=== PATIENT | female | born 1960 | race Caucasian/White ===

== ENCOUNTER 2021-04-20 11:47 | Outpatient (CLI) | payer OTHER, SELFPAY ==
--- NOTE | 2021-04-20 12:34 | ECG_ITS ---
Measurements Intervals [employer] Rate: 55 P: 11 HI: 129 QRS: -3 QRSD: 101 T: 2 QT: 432 QTc: 416 Interpretive Statements SINUS BRADYCARDIA DELAYED PRECORDIAL R/S TRANSITION VOLTAGE CRITERIA FOR LVH MINIMAL Q WAVES- HIGH LATERAL LEADS BORDERLINE T WAVE ABNORMALITY- INFERIOR LEADS BASELINE ARTIFACT- I, II, AVR, AVF BORDERLINE ECG Electronically Signed On 04-20-2021 12:59:06 [employer] WORK[employer] by Pedro Yuen D.O.
[2021-04-20 13:06] LABS: Basophils Percent Auto 0.4 % (0.2-1.2); Eosinophils Absolute Auto 0.1 K/mm3 (0-0.3); Eosinophils Percent Auto 1.9 % (0-4.4); Hematocrit 40.3 % (37.0-47.0); Hemoglobin 13.4 g/dL (12.0-15.0); Immature Granulocyte Absolute 0.01 K/mm3 (0.00-0.031); Immature Granulocyte Percent A 0.1 % (0-0.5); Lymphocytes Absolute Auto 2.73 K/mm3 (0.9-3.2); Lymphocytes Percent Auto 37.9 % (18.3-44.2); Mean Corpuscular HGB Conc 33.3 g/dl (32-36); Mean Corpuscular Hemoglobin 31.2 pg (26-34); Mean Corpuscular Volume 93.7 fl (80-100); Monocytes Absolute Auto 0.8 K/mm3 (0.1-0.6); Neutrophils Absolute Auto 3.5 K/mm3 (1.3-6.7); Neutrophils Percent Auto 48.7 % (45.5-73.1); Platelet Count Result 236 k/mm3 (150-375); Red Cell Distribution Width 11.8 % (11.5-14.5); White Blood Count 7.2 K/mm3 (4.5-10.0)
[2021-04-20 13:09] LABS: Add Urine Microscopic? NO; Appearance Urine Clear (Clear); Bilirubin Urine Negative (Negative); Blood Urine Negative (Negative); Color Urine Yellow (Yellow); Glucose Urine UA Negative (Negative); Ketones Urine Negative (Negative); Leukocyte Esterase Ur Negative LEU/UL (Negative); Nitrate Urine Negative (Negative); Protein Urine Negative (Negative); Specific Grav Ur 1.014 (1.001-1.035); Urobilinogen Urine Negative mg/dL (<2.0)
[2021-04-20 13:13] LABS: Albumin Level 4.8 g/dL (3.5-5.1); Anion Gap 12 mmol/L (8-16); Blood Urea Nitrogen 13 mg/dL (7-17); Calcium 9.5 mg/dL (8.4-10.2); Carbon Dioxide 28 mmol/L (22-30); Chloride 102 mmol/L (98-107); Estimated Glomerular Filt Rate > 60; Glucose 95 mg/dL (65-110); Potassium 4.2 mmol/L (3.4-5.0); Sodium 142 mmol/L (137-145)
[2021-04-20 13:14] LABS: Urine Cotinine NEGATIVE
[2021-04-20 13:16] LABS: Hemoglobin A1C 5.7 % (<5.7); Partial Thromboplastin Time 25.5 SECONDS (22.3-36.8); Prothrombin Time 13.3 Seconds (11.1-14.7)
== END 2021-04-20 11:48 | disposition home or self-care (01) ==
LOC: ANHSURGERY 11:55
PROVIDERS: PCP Internal Medicine; Visit Provider Orthopaedic Surgery
DX: M17.12 Unilateral primary osteoarthritis, left knee (principal); Z01.818 Encounter for other preprocedural examination; R94.31 Abnormal electrocardiogram [ECG] [EKG]
CPT/HCPCS: 80048; 80307; 81003; 82040; 83036; 85025; 85610; 85730; 86850; 86900; 86901; 87081; 93005

== ENCOUNTER → 2021-04-29 00:03 | Outpatient (CLI) | payer OTHER, SELFPAY ==
[2021-04-29 20:23] LABS: SARS-CoV-2 RNA PCR Negative
== END ==
PROVIDERS: PCP Internal Medicine; Visit Provider Orthopaedic Surgery
DX: Z01.812 Encounter for preprocedural laboratory examination (principal); Z20.822 Contact with and (suspected) exposure to COVID-19
CPT/HCPCS: C9803; U0003; U0005

== ENCOUNTER 2021-05-03 00:06 | Day surgery (SDC) | payer OTHER, SELFPAY ==
--- NOTE | 2021-04-20 11:49 | PC.NURSE ---
Report to the Outpatient Waiting Room, entrance under the green pavilion located off [facility], at time _0830_ on date _05/03/21_. OR Time: _1030__. - You and your visitor will be asked a series of questions to screen for COVID 19 for your protection. - A mask is required within the hospital. - Only one visitor is allowed at this time. Patient visitors will be guided where to wait when not with patient. Preoperative COVID Testing Requirements: No COVID Test needed if: (proof is required; if not received patient will have Rapid Test prior to entry) - Patient has received COVID Vaccine at least 14 days prior to procedure date or - Patient has positive COVID test result within last 90 days of surgery date. COVID Test needed if above criteria is not met. COVID TEST SCHEDULED FOR 04/29/21 @ 0900 If not COVID vaccinated a COVID test must be conducted within 72 hours of surgery and patient is asked to isolate self from time of testing until procedure. You will go to the [employer] [facility] for your COVID testing. The [employer] [facility] Testing site is located at the corner of [address] [facility]. You will only be called if COVID results are positive and your surgeon may reschedule your elective surgery date. Patients may have clear liquids (water, carbonated beverages, clear teas, apple juice) until 3 hours prior to surgery with a maximum of 20 ounces. (0730 AM) - No food from midnight until time of surgery - Infants may have breast milk until 4 hours before surgery, infant formula 6 hours prior to surgery. - Children will be allowed to drink immediately following surgery. If applicable, please bring a bottle or sippy cup to assist with drinking. Juice, water, soda, and popsicles are readily available. For infants on formula, please bring formula the day of surgery. Pacifiers are allowed. Take the following medications with a SIP of water the morning of surgery: __ LEVOTHYROXINE Medications to discontinue per DR. WEISS - __IBUPROFEN - PER DR. MOONEY'S INSTRUCTIONS Medications to discontinue per ANESTHESIA - _ MULTIVITAMIN, 3 DAYS PRIOR TO SURGERY: Date to take last dose_1/22/22__ Please no make-up, nail romanian, hairspray, perfume, deodorant, or body powder the day of surgery. No jewelry (including any body piercings) or valuables the day of surgery, leave them at home. Please take a shower or bath the night before, or the morning of, surgery with an antibacterial soap. Wear comfortable, loose fitting clothing. Children are encouraged to wear pajamas. - Jewelry must be removed prior to entering the operating room. Rings and piercings that are not removed may be cut off. - The hospital will not accept responsibility for valuables. - Please leave all valuables, including medications, at home the day of surgery. If you are going home after surgery, a licensed dedicated intermodal truck driver must drive you home. - NO public transportation without another adult. - We recommend that an adult stay with you for 24 hours following discharge. - We also recommend that you do not drive, make important decision, drink alcoholic beverages, or take any drugs that were not prescribed by your health care provider for at least 24 hours after your discharge time. For Pediatric surgeries, we recommend two adults accompany the child home (only one inside the building at this time). Follow any additional instructions given to you from your surgeon. CHLORHEXIDINE GLUCONATE SCRUB DIRECTED Telephone instructions given to ____PT and asked if any additional questions and then verbalized understanding. Patient advised to call surgeon office or pre surgery nurse liaison [phone] if any additional questions.
[2021-04-20 12:15] VITALS: BP 156/80; PULSE 64; RESP 18; TEMP 36.4; O2SAT 95; BMI 37.9
--- NOTE | 2021-05-02 13:39 | P.PNAN_ITS ---
Anes - Initial Pre Proc Eval Procedure: Operation Date: 05/03/21 10:30 Proposed Procedures p Left Total Knee Arthroplasty - Van Alexander MD Date/Time: 05/02/21 13:39 Surgeon: Van Alexander MD Pre Op Diagnosis: Left knee djd Patient Data Age: 60 Gender: F Height: 1.57 m Weight: 94.1 kg Last Vital Signs Temp 36.4 C L 04/20/21 12:15 Pulse 64 04/20/21 12:15 Resp 18 04/20/21 12:15 BP 156/80 H 04/20/21 12:15 Pulse Ox 95 04/20/21 12:15 Allergies Allergy/AdvReac Type Severity Reaction Status Date / Time No Known Allergies Allergy Mild Verified 04/20/21 12:08 Home Medications Medication Instructions Recorded Confirmed Type atenolol 50 mg tablet 50 mg PO HS 10/21/20 04/20/21 History levothyroxine 150 mcg tablet 150 mcg PO QAM 10/21/20 04/20/21 History simvastatin 40 mg tablet 40 mg PO HS 10/21/20 04/20/21 History acetaminophen [Tylenol Ex Str 500 mg PO Q6H PRN 04/20/21 04/20/21 History Arthritis Pain] chlorhexidine gluconate 4 % 1 applic TOPICAL ONCE #237 ml 04/20/21 04/20/21 Rx topical liquid ibuprofen 400 mg PO Q6H PRN 04/20/21 04/20/21 History multivitamin [Multi-Vitamin] 1 tablet QAM 04/20/21 04/20/21 History Patient hx anesthesia problems: none Family hx anesthesia problems: none Results Review: All pre-operative results and documents have been reviewed as part of the pre-operative evaluation. [facility] Past Medical History Medical History (Updated 05/02/21 @ 13:40 by Irwin Segovia MD) Arthritis Claustrophobia Degenerative joint disease of knee Effusion, right knee High cholesterol Left knee DJD Left knee pain Obesity Right knee DJD Right knee pain Family History Family History Other Arthritis Cancer Diabetes mellitus Heart disease High cholesterol Hypertension Lung disease Social History Social History (Updated 04/20/21 @ 10:43 by Olive Lee MA) Smoking status: Former smoker Tobacco type: cigarettes Second hand tobacco smoke exposure: No Additional smoking assessment comments: STATES SMOKED 1PK/2DAYS/7YRS/QUIT 1984, DENIES ALL FORMS OF TOBACCO USE Alcohol intake: never Substance use: never Substance use type: does not use Living arrangements: with family Additional living arrangements comments: LIVES WITH SPOUSE - [place] Gender identity (if verbalized by the patient): Female Spiritual care concerns: No Anes - Eval Final PreProcedure Day of Procedure 05/02/21 13:39 Patient weight: obese Heart: regular rate and rhythm Lungs: clear to auscultation and normal air movement Airway: Mallampati scale class II Neurological: alert and oriented Last oral intake: >/= 8 hours ASA classification: III Emergent: no Anesthetic plan: proceed Anesthesia type and monitoring: general LMA Results Review: All pre-operative results and documents have been reviewed as part of the pre-operative evaluation. Informed Consent: The patient's anesthetic plan and its attendant risks and benefits were discussed with the patient/family/POA. Questions were solicited and answers provided to the satisfaction of the patient/family/POA.
[2021-05-03] VITALS (13 sets, daily range): BP systolic 123–154; BP diastolic 61–78; PULSE 52–82; RESP 13–20; TEMP 36.2–37.1; O2SAT 94–100
--- NOTE | ~2021-05-03 | XR_ITS ---
EXAMINATION: XR knee LT 2V DATE: 05/03/2021 12:59 INDICATION: Left knee arthroplasty. Postop. TECHNIQUE: 2 views of left knee were obtained. COMPARISON: Left knee radiograph 04/20/2021 FINDINGS: There is a total left knee arthroplasty in near-anatomic alignment without patellar resurfa cing. No fracture. There is gas in the knee joint and soft tissues, consistent with recent surgery. A nterior skin miriam are noted. IMPRESSION: 1. Total left knee arthroplasty in near-anatomic alignment. Reviewed, dictated and finalized at location [employer]
--- NOTE | 2021-05-03 07:15 | WPDHPUPDATE1 ---
History and Physical Update Update Date/Time: 05/03/21 07:15 History and Physical has been reviewed, including an updated exam of the patient. There are NO changes in the patient's condition. Risks, benefits, and alternatives have been discussed and questions answered. Patient agrees to proceed with procedure.
[2021-05-03] MEDS: ACETAMINOPHEN 500 MG TABLET 1000 MG PO (08:43)
--- NOTE | 2021-05-03 08:44 | WPDANESPNB ---
Anes - Peripheral Nerve Block Date/Time: 05/03/21 08:44 I have discussed with the patient/family/POA the placement of a peripheral nerve block for post-operative pain management, including associated risks, benefits, complications, and side effects. Alternative methods of post-operative analgesia were detailed. Questions were solicited and answers provided to the satisfaction of the patient/family/POA. Time-Out: A pre-procedural Time-Out was completed immediately before starting the procedure and confirmed: Patient Identification, Site, Procedure, Patient Position and the Availability of Requisite Equipment. Clinical Indications: Acute post-operative pain management requested by the operative surgeon. Nerve Block Insertion Note Anes-nerve block: adductor canal left Patient position: supine Skin prep: chlorhexidine Needle: 22 gauge, stimulating, insulated echogenic needle. Needle length: 80 mm Technique: ultrasound Technique comment: in plane Injectate: bupivacaine 0.5% with epi 5 mcg/ml (30cc) Observations: tolerated well Complications: none Procedure start time:: 955 Procedure end time:: 1000
[2021-05-03] MEDS: LACTATED RINGERS 1,000 ML 30 ML IV CONT ×2 (09:00→12:49)
[2021-05-03] MEDS: TRANEXAMIC ACID 1,000MG/ISO100 1,000 MG/100 ML BAG 200 MG IVPB (10:00)
[2021-05-03] MEDS: ceFAZolin 2 GM/D5W 50 ML 2 GM/50 ML BAG IVPB ×2 (10:10→18:00)
[2021-05-03] MEDS: GENTAMICIN BONE CEMENT REFOBACIN 1 EACH TOPICAL (10:53)
[2021-05-03] MEDS: TRANEXAMIC ACID 1,000 MG/10 ML AMPUL 1000 MG IV PUSH (11:53)
[2021-05-03] MEDS: fentaNYL CITRATE INJ (*CRX) 100 MCG/2 ML VIAL 25 MCG IV PUSH ×5 (12:56→13:52)
--- NOTE | 2021-05-03 13:02 | SUR.PHASEI ---
PORTABLE XRAY OF LEFT KNEE DONE.
--- NOTE | 2021-05-03 13:08 | W.PM.PROC2 ---
Procedure Note - Detailed Date of Procedure 05/03/21 Pre-op Diagnosis Left knee djd Post-op Diagnosis same Procedure Performed L TKA Surgeon Van Alexander MD Anesthesia general Description of Procedure THE LEFT KNEE WAS PREPPED AND DRAPED IN THE STERILE FASHION. A MIDLINE SKIN INCISION WAS MADE. A MEDIAL PARAPATELLAR ARTHROTOMY WAS MADE. THE PATELLA WAS EVERTED. THERE WAS TRICOMPARTMENT DJD. THERE WAS MINIMAL PATELLA DJD. AN INTRAMEDULLARY ABDI WAS PLACED IN THE FEMUR. A DISTAL FEMORAL CUT WAS MADE IN 5 DEGREES OF VALGUS REMOVING APPROXIMATELY 9 MM OF BONE FROM THE DISTAL FEMUR. THE FEMUR WAS SIZED TO 62.5. A 62.5 FEMORAL CUTTING BLOCK WAS PLACED IN 3 DEGREES OF EXTERNAL ROTATION AND IN ALIGNMENT WITH STACIE'S LINE AND THE TRANSEPICONDYLAR AXIS. ANTERIOR POSTERIOR AND CHAMFER CUTS WERE MADE. THE CUTS WERE EXCELLENT. NEXT AN INTRAMEDULLARY CUTTING GUIDE WAS PLACED IN THE TIBIA. A TRANS TIBIAL CUT WAS MADE ALONG THE LONG AXIS OF THE TIBIA. APPROXIMATELY 10 MM OF BONE WAS REMOVED FROM THE HIGH SIDE OF THE TIBIA. THE TIBIA WAS THEN PLANED TO A SMOOTH SURFACE. POSTERIOR FEMORAL OSTEOPHYTES WERE REMOVED FROM THE FEMORAL CONDYLES. A 75 TIBIAL TRIAL WAS PLACED IN ALIGNMENT WITH THE 1/3 MEDIAL ASPECT OF THE TIBIAL TUBERCLE. THEN A 62.5 FEMORAL TRIAL COMPONENT WAS PLACED. BOTH HAD EXCELLENT FITS. EVENTUALLY A 12 MM POLYETHYLENE TRIAL COMPONENT WAS PLACED. THE KNEE WAS TAKEN THROUGH A RANGE OF MOTION. THE KNEE CAME OUT TO FULL EXTENSION. THERE WAS NO ABNORMAL TILT TO THE PATELLA. THERE WAS GOOD A/P AND VARUS/VALGUS STABILITY. THERE WAS NO EXCESSIVE ROLL BACK WITH FLEXION. THE TRIAL COMPONENTS WERE REMOVED. THEN A 62.5 FEMORAL COMPONENT AND 75 TIBIAL COMPONENT WITH A 12 POLYETHYLENE COMPONENT WERE CEMENTED INTO PLACE. ONCE THE CEMENT WAS HARD THE KNEE WAS TAKEN THROUGH A ROM AGAIN AND FOUND TO BE STABLE WITH NO PATELLA TILT NO EXCESSIVE ROLL BACK WITH FLEXION AND GOOD STABILITY WITH COMPLETE AND FULL EXTENSION. THE KNEE WAS IRRIGATED WITH STERILE BETADINE AND WATER FOR ABOUT 3 MINUTES. THE BLEEDERS WERE CAUTERIZED. THE ARTHROTOMY WAS REPAIRED WITH NUMBER 1 VICRYL. THE SUB CUTANEOUS LAYER WITH 2-0 VICRYL AND THE SKIN WITH THAD. THE WOUND WAS WASHED AND A STERILE DRESSING WAS APPLIED. PATIENT WAS EXTUBATED. Estimated Blood Loss -150.0 Pathology none sent Complications No immediate complications Condition stable Disposition PACU
--- NOTE | 2021-05-03 14:04 | SUR.PHASEI ---
PT AWAKE AND ALERT. STATES PAIN MODERATE. EATING ICE CHIPS.
--- NOTE | 2021-05-03 14:17 | PC.NURSE ---
This patient, Marci Brizuela, was admitted to [facility] Surgery-2. Patient/family oriented to hospital policies and general routines including ID bracelet, bed and alarms, visiting hours, pain management, procedures, bathroom and other care routines, personal items, smoking policy, room service/diet, and visiting hours. Information on how to activate the Rapid Response Team has been discussed. Patient/Family are encouraged to report perceived risks to care and to ask questions if they do not understand what they are told or what they should do.
[2021-05-03] MEDS: ACETAMINOPHEN 500 MG TABLET PO (14:39)
[2021-05-03] MEDS: oxyCODONE/ACETAMINOPHEN (*CRX) 5-325 MG TABLET 1 TABLET PO ×2 (17:03→22:14)
[2021-05-03] MEDS: SIMVASTATIN 20 MG TABLET 40 MG PO (22:14)
[2021-05-03] MEDS: atenoloL 50 MG TABLET PO (22:17)
[2021-05-04] MEDS: oxyCODONE HCL (*CRX) 2.5 MG TAB IR 7.5 MG PO ×2 (02:20→13:12)
[2021-05-04] MEDS: ceFAZolin 2 GM/D5W 50 ML 2 GM/50 ML BAG IVPB ×2 (02:22→10:06)
[2021-05-04 06:00] VITALS: BP 111/64; PULSE 64; RESP 14; TEMP 37.4; O2SAT 97
[2021-05-04] MEDS: LEVOTHYROXINE SODIUM 150 MCG TABLET PO (06:16)
[2021-05-04 06:54] LABS: Basophils Percent Auto 0.2 % (0.2-1.2); Eosinophils Percent Auto 0.1 % (0-4.4); Hematocrit 32.3 % (37.0-47.0); Hemoglobin 10.6 g/dL (12.0-15.0); Immature Granulocyte Absolute 0.05 K/mm3 (0.00-0.031); Immature Granulocyte Percent A 0.4 % (0-0.5); Immature Platelet Fraction Pct 15.7 % (0.9-11.2); Lymphocytes Absolute Auto 2.32 K/mm3 (0.9-3.2); Lymphocytes Percent Auto 17.5 % (18.3-44.2); Mean Corpuscular HGB Conc 32.8 g/dl (32-36); Mean Corpuscular Hemoglobin 31.8 pg (26-34); Mean Platelet Volume 13.5 fl (7.4-10.4); Monocytes Percent Auto 7.8 % (2.6-8.5); Neutrophils Absolute Auto 9.8 K/mm3 (1.3-6.7); Platelet Count Result 196 k/mm3 (150-375); Red Blood Count 3.33 M/mm3 (4.2-5.4); White Blood Count 13.2 K/mm3 (4.5-10.0)
[2021-05-04 07:09] LABS: Anion Gap 7 mmol/L (8-16); Blood Urea Nitrogen 14 mg/dL (7-17); Calcium 8.8 mg/dL (8.4-10.2); Carbon Dioxide 25 mmol/L (22-30); Chloride 105 mmol/L (98-107); Estimated CRCL calculation 75 ml/min; Estimated Glomerular Filt Rate > 60; Glucose 109 mg/dL (65-110); Potassium 4.5 mmol/L (3.4-5.0); Sodium 137 mmol/L (137-145)
[2021-05-04] MEDS: oxyCODONE/ACETAMINOPHEN (*CRX) 5-325 MG TABLET 1 TABLET PO (08:54)
[2021-05-04] MEDS: ASPIRIN 325 MG ENTERIC TABLET 650 MG PO (08:55)
[2021-05-04] MEDS: polyethylene glycoL 3350 17 GM POWD.PACK PO (08:55)
[2021-05-04] MEDS: MULTIVITAMINS THERAPEUTIC TAB (*BKC) 1 TABLET BY MOUTH (08:57)
--- NOTE | 2021-05-04 09:26 | P.PNAN_ITS ---
Anes - Prog Note Post-Op Date/Time: 05/04/21 09:26 Cardiovascular status: normal Respiratory status: normal Airway patency: baseline Mental status: baseline Post-Op hydration status: normal Vital Signs: Last Vital Signs Temp 37.4 C 05/04/21 06:00 Pulse 64 05/04/21 06:00 Resp 14 05/04/21 06:00 BP 111/64 05/04/21 06:00 Pulse Ox 97 05/04/21 06:00 Pain Score (VAS): 4 I/O: Intake & Output 05/03/21 05/04/21 05/04/21 23:59 07:59 15:59 Intake Total 50 50 Balance 50 50 Laboratory Tests 05/04/21 06:22 05/04/21 06:22 05/04/21 05/04/21 06:22 06:22 WBC 13.2 H RBC 3.33 L Hgb 10.6 L Hct 32.3 L MCV 97.0 MCH 31.8 MCHC 32.8 RDW 12.0 Plt Count 196 MPV 13.5 H Immature Gran % (Auto) 0.4 Neut % (Auto) 74.0 H Lymph % (Auto) 17.5 L Sunflower % (Auto) 7.8 Eos % (Auto) 0.1 Baso % (Auto) 0.2 Lymph # (Auto) 2.32 Sunflower # (Auto) 1.0 H Eos # (Auto) 0.0 Baso # (Auto) 0.0 Abs Immat Gran (auto) 0.05 H Absolute Neuts (auto) 9.8 H Absolute Nucleated RBC 0.0 Nucleated RBC % 0.0 % Immature Plt Fraction 15.7 H Sodium 137 Potassium 4.5 Chloride 105 Carbon Dioxide 25 Anion Gap 7 L BUN 14 Creatinine 0.70 Estim Creat Clear Calc 75 Estimated GFR > 60 Glucose 109 Calcium 8.8 Post-procedural complaints: none Patient Feedback: Patient satisfied with anesthetic care.
[2021-05-04] MEDS: ONDANSETRON INJ 4 MG/2 ML VIAL IV PUSH (12:27)
--- NOTE | 2021-05-04 12:46 | PM.PNORT ---
Progress Note: A&P Assessment and Plan (1) S/P total knee arthroplasty: Qualifiers: Laterality: left Qualified Code(s): Z96.652 - Presence of left artificial knee joint Code(s): Z96.659 - Presence of unspecified artificial knee joint Status: Acute Assessment and Plan: POD #1: Left TKA Continue PT/OT. WBAT. Walker. Fall Risk. Pain control. Ice. SCDs. Incentive spirometry. DVT prophylaxis with aspirin. Change dressing prior to discharge. Bowel regimen Dispo: Home with Home Health Time Spent With Patient Time with patient: less than 15 minutes Subjective Subjective Date/Time Seen: 05/04/21 12:46 Post Op day: 1 Principal diagnosis: Left Knee DJD Interval history: POD #1: Left TKA Complaints of pain. Well controlled with pain medication. No other concerns. Review of Systems Review of Systems: All systems reviewed & are unremarkable except as noted in HPI and below Constitutional: Constitutional: Denies fever(s) and Denies headache(s) Cardiovascular: Cardiovascular: Denies chest pain, Denies diaphoresis, Reports lightheadedness, Denies palpitations and Denies dyspnea Respiratory: Respiratory: Denies dyspnea Gastrointestinal: Gastrointestinal: Denies abdominal pain, Denies constipation, Denies nausea and Denies vomiting Genitourinary: Genitourinary: Reports nocturia and Denies dysuria Musculoskeletal: Musculoskeletal: Reports arthralgias (Left Knee ), Reports joint swelling (Left Knee ) and Reports limited range of motion (ROM limited due to recent surgical intervention LEFT Knee ) Endocrine: Endocrine: Denies palpitations Exam Const: General: comfortable and no acute distress Resp: Effort & Inspection: normal respiratory effort Cardio: Rate: regular rate Rhythm: regular rhythm GI: GI Palp: Yes Soft to palpation, No Tenderness to palpation present (GI) and No Guarding due to palpation present (GI) Skin: Wounds: wounds noted Other: Incision c/d/i. No surrounding redness/warmth. No hematoma. Mild ecchymosis. No wound dehiscence Neuro: Cognition (Neuro): normal cognition Other: NV intact aside from block. Moves toes. Sensation intact to light touch. +ankle dorsiflexion/plantarflexion. Extrem: Left lower extremity: normal to inspection, normal capillary refill and knee Details: tenderness (diffuse ), swelling (moderate consistent to recent surgery ), abnormal ROM (limited due to recent surgery ) and ecchymosis (as expected with recent surgery. NO hematoma. ) Other: Incision left TKA dressing c/d/i. No hematoma. No signs of infection. No wound dehiscence. Psych: Mental Status: mental status grossly normal Objective Data Vital Signs Vital Signs: Vital Signs - 24 hr 05/03/21 12:49 05/03/21 13:00 05/03/21 13:15 Temperature 36.3 C L Pulse Rate 82 66 71 Respiratory Rate 13 14 17 Blood Pressure 135/74 140/65 139/68 Pulse Oximetry 98 100 94 05/03/21 13:30 05/03/21 13:45 05/03/21 14:00 Temperature Pulse Rate 52 L 58 L 58 L Respiratory Rate 14 14 14 Blood Pressure 154/61 H 139/72 136/71 Pulse Oximetry 94 94 94 05/03/21 14:24 05/03/21 14:39 05/03/21 16:24 Temperature 36.8 C 36.2 C L 37.1 C Pulse Rate 54 L 62 Respiratory Rate 16 16 Blood Pressure 135/78 124/68 Pulse Oximetry 100 99 05/03/21 19:51 05/03/21 22:00 05/03/21 22:17 Temperature 36.8 C 36.8 C Pulse Rate 69 71 73 Respiratory Rate 14 14 Blood Pressure 123/72 123/72 Pulse Oximetry 95 96 05/04/21 06:00 Temperature 37.4 C Pulse Rate 64 Respiratory Rate 14 Blood Pressure 111/64 Pulse Oximetry 97 Intake/Output Intake/Output: Intake & Output 05/01/21 05/02/21 05/03/21 05/04/21 23:59 23:59 23:59 23:59 Intake Total 1999 100 Balance 1999 100 Meds/Results Medications: Active Medications Generic Name Dose Route Start Last Admin Trade Name Freq PRN Reason Stop Dose Admin Acetaminophen 500 mg 05/03/21 14:06 05/03/21 14:39 Acetaminophen 500 Mg Table
--- NOTE | 2021-05-04 12:49 | PM.DS ---
DS: Admitting Diagnosis Discharge Date 05/04/21 Admitting Diagnosis Left Knee DJD DS: Discharge Diagnosis Discharge Diagnosis (1) S/P total knee arthroplasty: Qualifiers: Laterality: left Qualified Code(s): Z96.652 - Presence of left artificial knee joint Code(s): Z96.659 - Presence of unspecified artificial knee joint Status: Acute Assessment and Plan: POD #1: Left TKA Continue PT/OT. WBAT. Walker. Fall Risk. Pain control. Ice. SCDs. Incentive spirometry. DVT prophylaxis with aspirin. Change dressing prior to discharge. Bowel regimen Dispo: Home with Home Health DS: Summary Hospital Course Reason for hospitalization: Left TKA Hospital Course: 60-year-old female admitted status post left TKA for postoperative medical management, pain control and mobilization with physical and occupational therapy. Patient progressed well on postop day 1 and felt safe to be discharged home. She has been cleared by Physical therapy and is medically stable. Patient we discharged home with home health at this time. She will follow up in the outpatient orthopedic clinic in 3 weeks. Medications have been reviewed and sent to pharmacy. All discharge recommendations reviewed. Status at Discharge Overall status at discharge: patient is progressing back to baseline Time Spent with Patient Time attestation: Total time spent providing and/or coordinating discharge services: Time spent: Less than 30 minutes Exam Const: General: comfortable and no acute distress Resp: Effort & Inspection: normal respiratory effort Cardio: Rate: regular rate Rhythm: regular rhythm Skin: Wounds: wounds noted Other: Incision c/d/i. No surrounding redness/warmth. No hematoma. Mild ecchymosis. No wound dehiscence Neuro: Cognition (Neuro): normal cognition Other: NV intact aside from block. Moves toes. Sensation intact to light touch. +ankle dorsiflexion/plantarflexion. Extrem: Left lower extremity: normal to inspection, normal capillary refill and knee Details: tenderness (diffuse ), swelling (moderate consistent to recent surgery ), abnormal ROM (limited due to recent surgery ) and ecchymosis (as expected with recent surgery. NO hematoma. ) Other: Incision left TKA dressing c/d/i. No hematoma. No signs of infection. No wound dehiscence. Psych: Mental Status: mental status grossly normal DS: Data Data Completed and Pending Labs on day of discharge: Labs from last 24 hours 05/04/21 05/04/21 06:22 06:22 WBC 13.2 H RBC 3.33 L Hgb 10.6 L Hct 32.3 L MCV 97.0 MCH 31.8 MCHC 32.8 RDW 12.0 Plt Count 196 MPV 13.5 H Immature Gran % (Auto) 0.4 Neut % (Auto) 74.0 H Lymph % (Auto) 17.5 L [place] % (Auto) 7.8 Eos % (Auto) 0.1 Baso % (Auto) 0.2 Lymph # (Auto) 2.32 [place] # (Auto) 1.0 H Eos # (Auto) 0.0 Baso # (Auto) 0.0 Abs Immat Gran (auto) 0.05 H Absolute Neuts (auto) 9.8 H Absolute Nucleated RBC 0.0 Nucleated RBC % 0.0 % Immature Plt Fraction 15.7 H Sodium 137 Potassium 4.5 Chloride 105 Carbon Dioxide 25 Anion Gap 7 L BUN 14 Creatinine 0.70 Estim Creat Clear Calc 75 Estimated GFR > 60 Glucose 109 Calcium 8.8 Discharge Plan Discharge Patient Disposition: Home Health Service Discharge Instructions: Per Care Coordination to discharge home with [facility] for PT/OT/Nursing ([phone]) Post Op Total Knee Replacement Instructions Dr. Van Alexander [phone] ? Your dressing will be changed prior to your discharge. You will be sent home with one additional dressing to be changed on post op day 7 by the home health RN. Your miriam will be removed on the 14th day after surgery and steri-strips will be placed. Please practice good hand hygiene and do not touch your incision in order to prevent infection. ? You may shower with your dressing but do not submerge in a bath tub. ? Do not drive or operate machinery until
== END 2021-05-04 15:00 | disposition home health service (06) ==
LOC: ANHSURGERY 08:30 → ANHSUROVER 14:10
PROVIDERS: PCP Internal Medicine; Visit Provider Orthopaedic Surgery
PROC: (CPT 27447; principal; 2021-05-03 10:30)
DX: M17.12 Unilateral primary osteoarthritis, left knee (principal); G89.18 Other acute postprocedural pain; E78.00 Pure hypercholesterolemia, unspecified; E66.9 Obesity, unspecified; Z68.36 Body mass index [BMI] 36.0-36.9, adult; Z87.891 Personal history of nicotine dependence
CPT/HCPCS: 27447; 64447; 36415; 73560; 80048; 85025; 85055; 97110; 97116; 97161; 97165; 97535; A9270; C1713; C1776; J0171; J0690; J1100; J1170; J1885; J2250; J2270; J2405; J2704; J2795; J3010; J7120

== ENCOUNTER 2021-05-31 13:44 | Outpatient (RCR) | payer OTHER, SELFPAY ==
--- NOTE | 2021-05-31 13:54 | PTOPEVAL ---
Thank you for referring Marci Brizuela to [facility] [place] 2[place]? The patient is scheduled to be seen for therapy? __2__x/week for 12 visits. Please review, sign, date and return this plan of care ZOHRA. I agree with and certify that the following plan of care is medically necessary. Referring Physician Date Admitting Provider: Attending Provider: Willian Velasquez MD Referring Provider: *PT Outpatient Evaluation Start: 05/31/21 12:59 Freq: Status: Active Protocol: Document 05/31/21 12:59 DEDRA (Rec: 05/31/21 13:52 DEDRA [email or web address]) Therapy Assessment Status Assessment Status Assessment Status Evaluation Outpatient Past Medical History Neurological History Hx Neurological Disorders No Significant History Cardiovascular History Hx Hypercholesterolemia Yes Hx Hypertension Yes Respiratory History Hx Respiratory Disorders No Significant History Gastrointestinal History Hx Gastrointestinal Disorders No Significant History Genitourinary History Hx Genitourinary Disorders No Significant History Musculoskeletal History Hx Arthritis Yes: KNEES, HANDS Hx Crutches or Walker Use Yes: PT HAS WALKER FOR POST OP Query Text:If Yes, Enter Crutches, USE Walker, or Both in the Comment Hx Other Musculoskeletal Disorders Yes: DJD BILATREAL KNEES Hematological History Hx Hematological Disorders No Significant History Endocrine History Hx Hypothyroidism Yes HEENT History Hx Other HEENT Disorders Yes: GLASSES Integumentary History Hx Skin Disorders No Significant History Reproductive History Hx Post Menopausal Yes Psychosocial History Hx Psychiatric Disorders No Significant History Pain History Has Past Pain Affected Your Daily Life Yes: BILATEAL KNEES Anesthesia History Hx Anesthesia Reactions No Significant History Evaluation Information Problem Diagnosis s/p left TKA Onset 05/03/21 Subjective Information Pt. reports she underwent left Query Text:As Reported By Patient/ TKA on 05/03/21. Pt. was Family recieving therapy and has been currently discharged from . She reports that her biggest complication is stiffness in the left knee. She reports she is still using a walker. She states that she relies on her daughter to get into town. She reports difficulty with sleeping at night due to pain. She takes oxycodone every 6-8 hours still. She states that h
== END 2021-07-07 14:52 | disposition home or self-care (01) ==
LOC: CHSPT 13:44
PROVIDERS: PCP Internal Medicine; Visit Provider Orthopaedic Surgery
DX: Z96.652 Presence of left artificial knee joint (principal)
CPT/HCPCS: 97016; 97110; 97161; 97530

== ENCOUNTER 2021-07-13 09:16 | Outpatient (CLI) | payer OTHER, SELFPAY ==
--- NOTE | ~2021-07-13 | US_ITS ---
US right upper quadrant INDICATION: Abdomen pain PROCEDURE: Realtime right upper abdominal ultrasound. COMPARISON: No prior studies for comparison. FINDINGS: The pancreas is normal without focal mass or pancreatic ductal dilation. Liver echotexture is normal without focal mass or intrahepatic biliary dilatation. There is normal directional flow i n the portal vein. The gallbladder is normal without stones, gallbladder wall thickening or pericholecystic fluid. Comm on bile duct measures 4.6 mm. No sonographic Cooper's sign. IMPRESSION: 1: Normal limited abdominal ultrasound. Reviewed, dictated and finalized at location A.
== END 2021-07-13 09:17 | disposition home or self-care (01) ==
LOC: CHSIMG 09:18
PROVIDERS: PCP Internal Medicine; Visit Provider Internal Medicine
DX: R10.9 Unspecified abdominal pain (principal)
CPT/HCPCS: 76705

== ENCOUNTER 2023-09-20 10:35 | Outpatient (CLI) | payer MEDICARE, MEDICAID, SELFPAY ==
--- NOTE | ~2023-09-20 | XR_ITS ---
XR cervical spine 4-5V 09/20/2023 11:28 Indication: Neck pain Procedure: 5 views cervical spine Comparison: No prior studies for comparison. Findings: There is degenerative anterolisthesis at C3-4 and C4-5. There is disc narrowing at C5-6 and C6-7. No alteration of alignment with flexion/extension. No prevertebral soft tissue swelling. Odont oid process is normal. There is advanced multilevel uncinate and facet hypertrophy. Lung apices are u nremarkable. Impression: 1: Severe cervical spondylosis. Reviewed, dictated and finalized at location B. Impression: 1: Severe cervical spondylosis.
--- NOTE | ~2023-09-20 | MR_ITS ---
MRI of the brain Clinical History: Headache Technique: Axial and sagittal T1-weighted images were acquired. These were followed by axial T2-weigh chanel, diffusion weighted, gradient, and FLAIR images. Findings: There is no acute infarct, intracranial hemorrhage, or mass lesion. There are moderate chronic disease manager dina white matter changes in the periventricular white matter bilaterally, most likely chronic microva scular ischemic change. Ventricles and subarachnoid spaces are unremarkable. Orbits are unremarkable. Paranasal sinuses and m astoid air cells are clear. Major intracranial flow voids are intact. Sagittal midline structures are intact. IMPRESSION: No acute infarct, intracranial hemorrhage, or mass lesion. Moderate chronic microvascular ischemic change. Reviewed, dictated and finalized at location M.
== END 2023-09-20 10:36 | disposition home or self-care (01) ==
PROVIDERS: PCP Internal Medicine; Visit Provider Internal Medicine
DX: R51.9 Headache, unspecified (principal); M54.2 Cervicalgia; R25.3 Fasciculation; M47.892 Other spondylosis, cervical region
CPT/HCPCS: 70551; 72050

== ENCOUNTER 2024-12-15 00:09 | Inpatient (IN) | payer MEDICARE, MEDICAID, SELFPAY ==
[2024-12-15] VITALS (31 sets, daily range): BP systolic 110–159; BP diastolic 55–94; PULSE 52–83; RESP 11–21; TEMP 36.4–36.7; O2SAT 94–99; BMI 39.5
--- NOTE | ~2024-12-15 | XR_ITS ---
Examination: XR chest 1V portable Clinical History: Chest pain Comparison: None Technique: Portable AP Findings: Heart size upper limit of normal. Lungs clear. No acute bony abnormality. IMPRESSION: 1. No acute cardiopulmonary findings given portable technique. Reviewed, dictated and finalized at location R.
--- NOTE | 2024-12-15 00:21 | ECG_ITS ---
Test Date: 2024-12-15 00:24:30 Measurements Intervals [place] Rate: 80 P: 23 [place]: 133 QRS: 65 QRSD: 88 T: 48 QT: 373 QTc: 432 Interpretive Statements SINUS RHYTHM NORMAL ELECTROCARDIOGRAM No previous ECG available for comparison Electronically Signed On 12-16-2024 15:29:16 CDT by Ganga Jamison M.D.
[2024-12-15] MEDS: ASPIRIN 81 MG CHEWABLE TABLET 324 MG PO (00:26)
[2024-12-15 00:34] LABS: Hematocrit 38.6 % (37.0-47.0); Hemoglobin 12.7 g/dL (12.0-15.0); Immature Granulocyte Percent A 1.3 % (0-0.5); Lymphocytes Absolute Auto 1.55 K/mm3 (0.9-3.2); Mean Corpuscular HGB Conc 32.9 g/dl (32-36); Mean Corpuscular Hemoglobin 30.7 pg (26-34); Mean Corpuscular Volume 93.2 fl (80-100); Nucleated Red Blood Cells Absolute Auto 0.000 K/mm3 (0.0-0.012); Nucleated Red Blood Cells Perc 0.0 % (0.0-0.2); Platelet Count Result 241 k/mm3 (150-375); Red Blood Count 4.14 M/mm3 (4.2-5.4); White Blood Count 10.2 K/mm3 (4.5-10.0)
[2024-12-15 00:47] LABS: Alanine Aminotransferase 23 U/L (6-35); Albumin Level 4.4 g/dL (3.5-5.1); Alkaline Phosphatase 67 U/L (38-126); Anion Gap 10 mmol/L (4-12); Aspartate Amino Transferase 29 U/L (14-36); Bilirubin,Total 0.4 mg/dL (0.2-1.3); Blood Urea Nitrogen 18 mg/dL (7-17); Calcium 9.5 mg/dL (8.4-10.2); Carbon Dioxide 22 mmol/L (22-30); Chloride 107 mmol/L (98-107); Estimated CRCL calculation 55 ml/min; Estimated Glomerular Filt Rate 60; Glucose 127 mg/dL (65-110); Lipase 159 U/L (23-300); Potassium 4.5 mmol/L (3.4-5.0); Sodium 139 mmol/L (137-145); Total Protein 7.8 g/dL (6.3-8.2)
[2024-12-15 00:51] LABS: INR 1.0; Prothrombin Time 12.9 Seconds (11.1-14.7)
[2024-12-15 00:52] LABS: Partial Thromboplastin Time 22.3 Seconds (22.3-36.8)
[2024-12-15 00:58] LABS: Troponin I 0.014 ng/mL (0.000-0.034)
--- NOTE | 2024-12-15 03:27 | ECG_ITS ---
Test Date: 2024-12-15 03:51:24 Measurements Intervals [place] Rate: 54 P: 8 RI: 130 QRS: -6 QRSD: 96 T: 2 QT: 445 QTc: 422 Interpretive Statements SINUS BRADYCARDIA VOLTAGE CRITERIA FOR LVH [MEETS CRITERIA IN ONE OF: R(aVL), S(V1), R(V5), R(V5/V6)+S(V1)] OTHERWISE NORMAL ECG Compared to ECG 12/15/2024 00:24:30 HEART RATE DECREASED OTHERWISE NO SIGNIFICANT CHANGE Electronically Signed On 12-16-2024 15:33:36 CDT by Ganga Jamison M.D.
[2024-12-15 05:13] LABS: Troponin I 0.109 ng/mL (0.000-0.034)
--- NOTE | 2024-12-15 05:16 | ED.GENADULT ---
HPI - General Adult General Chief complaint: Chest Pain Stated complaint: chest pain Time Seen by Provider: 12/15/24 00:19 History of Present Illness HPI narrative: This is a 64-year-old female presenting ED with chief complaint of chest pain. At 10:00 p.m. while the patient was going to sleep she developed a heaviness across her chest radiating to both arms. It was moderate intensity. It lasted for approximately 2 hours before resolving on her own. She has never had pain like this before there are no exacerbating or alleviating symptoms. During the episode she became diaphoretic and had palpitations. Did not appear to be exertional. No lower extremity edema. No fevers chills shortness of breath abdominal pain or lower extremity edema. Patient is chest pain-free at the moment. Patient has a history of hypertension high cholesterol. Patient quit smoking in 1984. Her brother had an [place] at the age of 37. Related Data Home Medications ?Medication ?Instructions ?Recorded ?Confirmed ?Last Taken ?Type atenolol 50 mg tablet 50 mg PO 10/21/20 04/16/22 05/02/21 21:00 History levothyroxine 150 mcg tablet 150 mcg PO M 10/21/20 04/16/22 05/03/21 06:30 History simvastatin 40 mg tablet 40 mg PO HS 10/21/20 04/16/22 05/02/21 History acetaminophen 500 mg tablet 500 mg PO Q6H PRN Pain 04/20/21 04/16/22 Unknown History ibuprofen 200 mg tablet 400 mg PO Q6H PRN Pain 04/20/21 04/16/22 04/30/21 History multivitamin 1 tablet [facility] 04/20/21 04/16/22 04/26/21 History Allergies Allergy/AdvReac Type Severity Reaction Status Date / Time No Known Allergies Allergy Mild Verified 04/16/22 10:07 [facility] Past Medical History Medical History Arthritis Claustrophobia Degenerative joint disease of knee Effusion, right knee High cholesterol Left knee DJD Left knee pain Obesity Right knee DJD Right knee pain Surgical History Surgical History S/P total knee arthroplasty Family History Family History Other Arthritis Cancer Diabetes mellitus Heart disease High cholesterol Hypertension Lung disease Social History Social History (Updated 04/16/22 @ 10:08 by Olive Lee MA) Smoking status: Former smoker Tobacco type: cigarettes Second hand tobacco smoke exposure: No Additional smoking assessment comments: STATES SMOKED 1PK/2DAYS/7YRS/QUIT 1985, DENIES ALL FORMS OF TOBACCO USE Alcohol intake: never Substance use: never Substance use type: does not use Living arrangements: with family Additional living arrangements comments: LIVES WITH SPOUSE - [place] Gender identity (if verbalized by the patient): Female Spiritual care concerns: No Exam Narrative: APPEARANCE: No apparent distress. Head: atraumatic. EYES: EOMI, NOSE: Atraumatic NECK: Trachea midline RESPIRATORY: No increased rate of breathing clear to auscultation CARDIOVASCULAR: RRR, no peripheral edema ABDOMINAL: Non-distended soft nontender MUSCULOSKELETAl: No obvious deformities NEURO: Alert. Moving 4/4 extremities SKIN:: Warm, dry. Normal color PSYCHIATRIC: Normal affect Course Vital Signs Vital signs: Vital Signs Temperature 97.6 F 12/15/24 00:17 Pulse Rate 83 12/15/24 00:17 Respiratory Rate 17 12/15/24 00:17 Pulse Oximetry 98 12/15/24 00:17 Oxygen Delivery Room Air 12/15/24 00:17 Temperature 97.6 F 12/15/24 00:17 Pulse Rate 52 L 12/15/24 03:30 Respiratory Rate 17 12/15/24 03:30 Blood Pressure 126/73 12/15/24 03:30 Pulse Oximetry 97 12/15/24 03:30 Oxygen Delivery Room Air 12/15/24 00:27 Medical Decision Making [facility] Narrative Medical decision making narrative: -Course: 64-year-old female presenting ED after a an episode of cardiac chest pain. Initial troponin 0.014. This up trended 0.109. EKG showed normal sinus rhythm without ischemic changes. Patient was monitored in the ED for 4 hours while completing her workup with no dysrhythmias on the cardiac rn. Patient started on heparin for NSTEMI. Patient will be admitted hospital for Cardiology evaluation. -DDX includes but is not limited to: ACS, dysrhythmia, pneumonia viral syndrome -Co-morbidities complicating care: Hypertension, high cholesterol Vital Signs Vital Signs: Vital Signs Temperature 97.6 F 12/15/24 00:17 Pulse Rate 83 12/15/24 00:17 Respiratory Rate 17 12/15/24 00:17 Pulse Oximetry 98 12/15/24 00:17 Oxygen Delivery Room Air 12/15/24 00:17 Temperature 97.6 F 12/15/24 00:17 Pulse Rate 52 L 12/15/24 03:30 Respiratory Rate 17 12/15/24 03:30 Blood Pressure 126/73 12/15/24 03:30 Pulse Oximetry 97 12/15/24 03:30 Oxygen Delivery Room Air 12/15/24 00:27 Lab Data 12/15/24 00:27 12/15/24 00:27 Labs: Lab Results 12/15/24 12/15/24 Range/Units 00:27 03:59 WBC 10.2 H (4.5-10.0) K/mm3 RBC 4.14 L (4.2-5.4) M/mm3 Hgb 12.7 (12.0-15.0) g/dL Hct 38.6 (37.0-47.0) % MCV 93.2 (80-100) fl MCH 30.7 (26-34) pg MCHC 32.9 (32-36) g/dl RDW 12.5 (11.5-14.5) % Plt Count 241 (150-375) k/mm3 MPV 12.6 H (7.4-10.4) fl Immature Gran % (Auto) 1.3 H (0-0.5) % Neut % (Auto) 78.3 H (45.5-73.1) % Lymph % (Auto) 15.2 L (18.3-44.2) % [place] % (Auto) 4.8 (2.6-8.5) % Eos % (Auto) 0.1 (0-4.4) % Baso % (Auto) 0.3 (0.2-1.2) % Lymph # (Auto) 1.55 (0.9-3.2) K/mm3 [place] # (Auto) 0.5 (0.1-0.6) K/mm3 Eos # (Auto) 0.0 (0-0.3) K/mm3 Baso # (Auto) 0.0 (0.0-0.1) K/mm3 Abs Immat Gran (auto) 0.13 H (0.00-0.031) K/mm3 Absolute Neuts (auto) 8.0 H (1.3-6.7) K/mm3 Absolute Nucleated RBC 0.000 (0.0-0.012) K/mm3 Nucleated RBC % 0.0 (0.0-0.2) % PT 12.9 (11.1-14.7) Seconds INR 1.0 APTT 22.3 (22.3-36.8) Seconds Sodium 139 (137-145) mmol/L Potassium 4.5 (3.4-5.0) mmol/L Chloride 107 (98-107) mmol/L Carbon Dioxide 22 (22-30) mmol/L Anion Gap 10 (4-12) mmol/L BUN 18 H (7-17) mg/dL Creatinine 0.94 (0.7-1.0) mg/dL Estim Creat Clear Calc 55 ml/min Estimated GFR 60 (59 - ) Glucose 127 H (65-110) mg/dL Calcium 9.5 (8.4-10.2) mg/dL Total Bilirubin 0.4 (0.2-1.3) mg/dL AST 29 (14-36) U/L ALT 23 (6-35) U/L Alkaline Phosphatase 67 (38-126) U/L Troponin I 0.014 0.109 H* D (0.000-0.034) ng/mL Total Protein 7.8 (6.3-8.2) g/dL Albumin 4.4 (3.5-5.1) g/dL Lipase 159 (23-300) U/L Discharge Plan Discharge Clinical Impression: Elevated troponin Patient Disposition: Still a Patient Condition: Stable Patient Language: Hebrew Prescriptions: No Action atenolol 50 mg tablet 50 mg PO HS simvastatin 40 mg tablet 40 mg PO HS levothyroxine 150 mcg tablet 150 mcg PO QAM multivitamin Tablet 1 tablet QAM acetaminophen 500 mg Tablet 500 mg PO Q6H PRN (Reason: Pain) ibuprofen 200 mg Tablet 400 mg PO Q6H PRN (Reason: Pain) Follow-up/Referrals: Rocky Bravo MD [Primary Care Provider, Internal Medicine]
[2024-12-15] MEDS: HEPARIN SOD/D5W 100 UNITS/ML 25,000 UNITS/250 ML BAG 8 UNITS IV CONT ×2 (05:31→18:12)
--- NOTE | 2024-12-15 06:34 | ADMGEN ---
This patient, Marci Brizuela, was admitted to IMU Room 200-01. Patient/family oriented to hospital policies and general routines including ID bracelet, bed and alarms, visiting hours, pain management, procedures, bathroom and other care routines, personal items, smoking policy, room service/diet, and visiting hours. Information on how to activate the Rapid Response Team has been discussed. Patient/Family are encouraged to report perceived risks to care and to ask questions if they do not understand what they are told or what they should do.
[2024-12-15 08:15] LABS: Hematocrit 38.1 % (37.0-47.0); Hemoglobin 12.3 g/dL (12.0-15.0); Immature Granulocyte Percent A 0.5 % (0-0.5); Immature Platelet Fraction Pct 13.0 % (0.9-11.2); Lymphocytes Absolute Auto 4.44 K/mm3 (0.9-3.2); Mean Corpuscular HGB Conc 32.3 g/dl (32-36); Mean Corpuscular Hemoglobin 30.9 pg (26-34); Mean Corpuscular Volume 95.7 fl (80-100); Nucleated Red Blood Cells Absolute Auto 0.000 K/mm3 (0.0-0.012); Nucleated Red Blood Cells Perc 0.0 % (0.0-0.2); Platelet Count Result 220 k/mm3 (150-375); Red Blood Count 3.98 M/mm3 (4.2-5.4); White Blood Count 12.5 K/mm3 (4.5-10.0)
[2024-12-15 08:28] LABS: Troponin I 0.141 ng/mL (0.000-0.034)
--- NOTE | 2024-12-15 08:53 | PM.CNCAR ---
Assessment and Plan Assessment and plan (1) Chest pain: Code(s): R07.9 - Chest pain, unspecified Status: Acute Assessment and Plan: Probably due to NSTEMI. Obtain echo. Consult HCG for LHC. Keep NPO. (2) Elevated troponin: Code(s): R79.89 - Other specified abnormal findings of blood chemistry Status: Acute Assessment and Plan: Trending up at 0.14. On heparin drip, aspirin, Coreg and Simvastatin. (3) Hypertension: Code(s): I10 - Essential (primary) hypertension Status: Acute Assessment and Plan: Mildly high. (4) Dyslipidemia: Code(s): E78.5 - Hyperlipidemia, unspecified Status: Acute Assessment and Plan: On Simvastatin. History of Present Illness History of Present Illness Consult date/time: 12/15/24 08:53 Reason For Visit: Elevated trop Narrative: 64 yr old woman presents to ER with chest pain. She has a history of hypertension, dyslipidemia, hypothyroidism. Reports last night at 10 pm she had abrupt onset chest pressure with sob lasted about 2 hours and resolved after taking aspirin in ED. He brother drove her in to ER. No more chest discomfort. Normally she is limited at walking with cane short distances due to knee pains. Denies orthopnea, PND, edema, dizziness, palpitations. Review of Systems Review of Systems: All systems reviewed & are unremarkable except as noted in HPI and below Constitutional: Constitutional: Reports as per HPI, Denies chills and Denies fever(s) Cardiovascular: Cardiovascular: Reports as per HPI, Reports chest pain and Denies irregular heart rhythm Respiratory: Respiratory: Reports as per HPI and Reports dyspnea Gastrointestinal: Gastrointestinal: Reports as per HPI and Denies abdominal pain Genitourinary: Genitourinary: Reports as per HPI and Denies dysuria Musculoskeletal: Musculoskeletal: Reports as per HPI and Reports arthralgias Neurologic: Reports as per HPI, Denies dizziness and Denies syncope [facility] Past Medical History Medical History Arthritis Claustrophobia Degenerative joint disease of knee Effusion, right knee High cholesterol Left knee DJD Left knee pain Obesity Right knee DJD Right knee pain Surgical History Surgical History S/P total knee arthroplasty Family History Family History Other Arthritis Cancer Diabetes mellitus Heart disease High cholesterol Hypertension Lung disease Social History Social History (Updated 04/16/22 @ 10:08 by Olive Lee MA) Smoking status: Former smoker Tobacco type: cigarettes Second hand tobacco smoke exposure: No Additional smoking assessment comments: STATES SMOKED 1PK/2DAYS/7YRS/QUIT 1984, DENIES ALL FORMS OF TOBACCO USE Alcohol intake: never Substance use: never Substance use type: does not use Lack of Transportation: No Lack of Food: Never True Current Housing: I Have Housing Concerned About Future Housing: No Difficulty Paying Gas/Electric Bills: No Difficulty Paying for Meds: No Currently Unemployed: No Education: High School Diploma/GED Difficulty w/ Childcare or Family Care: No Living arrangements: with family Additional living arrangements comments: LIVES WITH SPOUSE - [place] Gender identity (if verbalized by the patient): Female Spiritual care concerns: No Meds Home Medications and Allergies Home Medications ?Medication ?Instructions ?Recorded ?Confirmed ?Type simvastatin 40 mg tablet 40 mg PO HS 10/21/20 12/15/24 History acetaminophen 500 mg tablet 500 mg PO Q6H PRN Pain 04/20/21 12/15/24 History ibuprofen 200 mg tablet 400 mg PO Q6H PRN Pain 04/20/21 12/15/24 History multivitamin 1 tablet PO QAM 04/20/21 12/15/24 History carvedilol 12.5 mg tablet 12.5 mg PO Q12H 12/15/24 12/15/24 History levothyroxine 137 mcg tablet 137 mcg PO DAILY 12/15/24 12/15/24 History spironolactone 25 1 tablet PO DAILY 12/15/24 12/15/24 History mg-hydrochlorothiazide 25 mg tablet Allergies Allergy/AdvReac Type Severity Reaction Status Date / Time No Known Allergies Allergy Mild Verified 04/16/22 10:07 Vital Signs Vital Signs - 24 hr 12/15/24 00:17 12/15/24 00:22 12/15/24 00:23 Temperature 97.6 F Pulse Rate 83 82 Respiratory Rate 17 Blood Pressure Pulse Oximetry 98 98 Oxygen Delivery Room Air Room Air 12/15/24 00:27 12/15/24 00:28 12/15/24 03:30 Temperature Pulse Rate 82 52 L Respiratory Rate 17 Blood Pressure 126/73 Pulse Oximetry 98 97 Oxygen Delivery Room Air 12/15/24 06:08 12/15/24 06:26 12/15/24 07:41 Temperature 98.1 F Pulse Rate 58 L 59 L 58 L Respiratory Rate 16 16 16 Blood Pressure 159/94 H 153/65 H 152/72 H Pulse Oximetry 97 99 99 Oxygen Delivery Exam Const: General: cooperative, healthy appearing and comfortable Resp: Auscultation: clear to auscultation bilaterally, no crackles, no rales, no rhonchi and no wheezes Cardio: Rate: regular rate Rhythm: regular rhythm Heart sounds: no murmurs Peripheral pulses: dorsalis pedis present GI: GI Palp: No abdominal tenderness and Yes Soft to palpation Neuro: General: oriented to person, oriented to place and oriented to time Extrem: Right lower extremity: no edema Left lower extremity: no edema Results Labs and Meds 12/15/24 07:27 12/15/24 00:27 Lab results: Cardiac Enzymes 12/15/24 12/15/24 12/15/24 Range/Units 00:27 03:59 07:27 AST 29 (14-36) U/L Troponin I 0.014 0.109 H* D 0.141 H* D (0.000-0.034) ng/mL Coagulation 12/15/24 Range/Units 00:27 PT 12.9 (11.1-14.7) Seconds APTT 22.3 (22.3-36.8) Seconds CBC 12/15/24 12/15/24 Range/Units 00:27 07:27 WBC 10.2 H 12.5 H (4.5-10.0) K/mm3 RBC 4.14 L 3.98 L (4.2-5.4) M/mm3 Hgb 12.7 12.3 (12.0-15.0) g/dL Hct 38.6 38.1 (37.0-47.0) % Plt Count 241 220 (150-375) k/mm3 Lymph # (Auto) 1.55 4.44 H (0.9-3.2) K/mm3 [place] # (Auto) 0.5 0.9 H (0.1-0.6) K/mm3 Eos # (Auto) 0.0 0.1 (0-0.3) K/mm3 Baso # (Auto) 0.0 0.0 (0.0-0.1) K/mm3 Comprehensive Metabolic Panel 12/15/24 Range/Units 00:27 Sodium 139 (137-145) mmol/L Potassium 4.5 (3.4-5.0) mmol/L Chloride 107 (98-107) mmol/L Carbon Dioxide 22 (22-30) mmol/L BUN 18 H (7-17) mg/dL Creatinine 0.94 (0.7-1.0) mg/dL Glucose 127 H (65-110) mg/dL Calcium 9.5 (8.4-10.2) mg/dL AST 29 (14-36) U/L ALT 23 (6-35) U/L Alkaline Phosphatase 67 (38-126) U/L Total Protein 7.8 (6.3-8.2) g/dL Albumin 4.4 (3.5-5.1) g/dL Intake and Output 12/14/24 12/15/24 12/15/24 23:59 07:59 15:59 Intake Total 11.3 Balance 11.3 Intake: IV 11.3 Heparin Sod/D5w 100 Units/ml 25 11.3 ,000 units In 250 ml @ 800 UNITS/HR 8 mls/hr IV CONT .Q24H [facility] Rx#:[id number] Patient Weight 12/15/24 23:59 Weight 98.1 kg
--- NOTE | 2024-12-15 09:01 | PM.IMHP ---
H&P: HPI History of Present Illness Date/Time: 12/15/24 09:01 Chief Complaint: Chest pain Narrative: 64-year-old female with history of dyslipidemia, hypertension, hypothyroidism presents to [facility] ER on 12/15/2024. The night prior she was going to sleep at 10:00 p.m. when she had the abrupt onset of chest pressure midsternal with shortness of breath which lasted 2 hours, described as heavy and radiated to both arms. Her brother drove her to the ER, she received full-dose aspirin and the chest pain resolved. EKG demonstrating sinus bradycardia, no ST elevations. Troponin elevated at 0.109, then 0.141. WBC 10.2, increased to 12.5. Quit smoking in 1984, no alcohol use, no recreational drug use. Does not take a daily aspirin. Placed on heparin GTT. Review of Systems Review of Systems: All systems reviewed & are unremarkable except as noted in HPI and below (Subjective) PMFSH Past Medical History Medical History Arthritis Claustrophobia Degenerative joint disease of knee Effusion, right knee High cholesterol Left knee DJD Left knee pain Obesity Right knee DJD Right knee pain Surgical History Surgical History S/P total knee arthroplasty Family History Family History Other Arthritis Cancer Diabetes mellitus Heart disease High cholesterol Hypertension Lung disease Social History Social History (Updated 04/16/22 @ 10:08 by Olive Lee MA) Smoking status: Former smoker Tobacco type: cigarettes Second hand tobacco smoke exposure: No Additional smoking assessment comments: STATES SMOKED 1PK/2DAYS/7YRS/QUIT 1984, DENIES ALL FORMS OF TOBACCO USE Alcohol intake: never Substance use: never Substance use type: does not use Lack of Transportation: No Lack of Food: Never True Current Housing: I Have Housing Concerned About Future Housing: No Difficulty Paying Gas/Electric Bills: No Difficulty Paying for Meds: No Currently Unemployed: No Education: High School Diploma/GED Difficulty w/ Childcare or Family Care: No Living arrangements: with family Additional living arrangements comments: LIVES WITH SPOUSE - [place] Gender identity (if verbalized by the patient): Female Spiritual care concerns: No Meds Home Medications and Allergies Home Medications ?Medication ?Instructions ?Recorded ?Confirmed ?Type simvastatin 40 mg tablet 40 mg PO HS 10/21/20 12/15/24 History acetaminophen 500 mg tablet 500 mg PO Q6H PRN Pain 04/20/21 12/15/24 History ibuprofen 200 mg tablet 400 mg PO Q6H PRN Pain 04/20/21 12/15/24 History multivitamin 1 tablet PO QAM 04/20/21 12/15/24 History carvedilol 12.5 mg tablet 12.5 mg PO Q12H 12/15/24 12/15/24 History levothyroxine 137 mcg tablet 137 mcg PO DAILY 12/15/24 12/15/24 History spironolactone 25 1 tablet PO DAILY 12/15/24 12/15/24 History mg-hydrochlorothiazide 25 mg tablet Allergies Allergy/AdvReac Type Severity Reaction Status Date / Time No Known Allergies Allergy Mild Verified 04/16/22 10:07 Vital Signs Vital Signs - 24 hr 12/15/24 00:17 12/15/24 00:22 12/15/24 00:23 Temperature 97.6 F Pulse Rate 83 82 Respiratory Rate 17 Blood Pressure Pulse Oximetry 98 98 Oxygen Delivery Room Air Room Air 12/15/24 00:27 12/15/24 00:28 12/15/24 03:30 Temperature Pulse Rate 82 52 L Respiratory Rate 17 Blood Pressure 126/73 Pulse Oximetry 98 97 Oxygen Delivery Room Air 12/15/24 06:08 12/15/24 06:26 12/15/24 07:41 Temperature 98.1 F Pulse Rate 58 L 59 L 58 L Respiratory Rate 16 16 16 Blood Pressure 159/94 H 153/65 H 152/72 H Pulse Oximetry 97 99 99 Oxygen Delivery Exam Const: General: comfortable and no acute distress Other: A&O x3 HENMT: Mouth: Yes moist mucous membranes Eyes: Pupils: Equal, round and reactive pupils present Neck: Neck: supple Resp: Effort & Inspection: normal respiratory effort Auscultation: clear to auscultation bilaterally Cardio: Rate: bradycardic Rhythm: regular rhythm GI: Inspection: non-distended GI Palp: Yes Soft to palpation : General: Yes bladder normal to palpation Neuro: Motor exam (neuro): 5/5 motor strength present throughout Extrem: General: edema (Trivial) H&P: Results Labs Labs: Short CBC 12/15/24 12/15/24 Range/Units 00:27 07:27 WBC 10.2 H 12.5 H (4.5-10.0) K/mm3 Hgb 12.7 12.3 (12.0-15.0) g/dL Hct 38.6 38.1 (37.0-47.0) % Plt Count 241 220 (150-375) k/mm3 BMP 12/15/24 00:27 Sodium 139 Potassium 4.5 Chloride 107 Carbon Dioxide 22 BUN 18 H Creatinine 0.94 Glucose 127 H Calcium 9.5 Cardiac Enzymes 12/15/24 12/15/24 12/15/24 Range/Units 00:27 03:59 07:27 Troponin I 0.014 0.109 H* D 0.141 H* D (0.000-0.034) ng/mL Liver Function 12/15/24 Range/Units 00:27 Total Bilirubin 0.4 (0.2-1.3) mg/dL AST 29 (14-36) U/L ALT 23 (6-35) U/L Alkaline Phosphatase 67 (38-126) U/L Albumin 4.4 (3.5-5.1) g/dL Assessment and Plan Assessment and plan (1) Hypertension: Code(s): I10 - Essential (primary) hypertension Status: Acute (2) Dyslipidemia: Code(s): E78.5 - Hyperlipidemia, unspecified Status: Acute (3) NSTEMI (non-ST elevated myocardial infarction): Code(s): I21.4 - Non-ST elevation (NSTEMI) myocardial infarction Status: Acute Plan 64-year-old female with history of dyslipidemia, hypertension, hypothyroidism presents to [facility] ER on 12/15/2024. The night prior she was going to sleep at 10:00 p.m. when she had the abrupt onset of chest pressure midsternal with shortness of breath which lasted 2 hours, described as heavy and radiated to both arms. Her brother drove her to the ER, she received full-dose aspirin and the chest pain resolved. EKG demonstrating sinus bradycardia, no ST elevations. Troponin elevated at 0.109, then 0.141. WBC 10.2, increased to 12.5. Quit smoking in 1984, no alcohol use, no recreational drug use. Does not take a daily aspirin. Placed on heparin GTT. ----- Patient seen by Dr. Yuen Cardiology, [facility] [place] consult for [facility]. NPO. Continue heparin GTT. Continue trend troponin. Pending TTE. Lipid panel ordered. Continue [employer] simvastatin 40 mg p.o. HS. Continue aspirin 81 mg p.o. q.a.m. Sinus bradycardia, continue Coreg. Discontinue spironolactone and hydrochlorothiazide. Continue [employer] levothyroxine Leukocytosis. No symptomatology indicate infection. Afebrile. Continue to trend and check procalcitonin. Patient wishes to be full code. She lives at home alone. Independent at baseline. NPO. Saline lock IV. Heparin GTT. Hospitalist MIPS Advance Care Plan I have confirmed that the patient's Advanced Care Plan is present, code status is documented, or surrogate decision maker is listed in patient medical record.: Yes Medication Reconciliation I have utilized all available resources to obtain, update and review the patients current medications (includes all prescriptions, OTC, herbals, cannabis, and nutritional supplements).: Yes
[2024-12-15] MEDS: MULTIVITAMINS THERAPEUTIC TAB (*BKC) 1 TABLET PO (09:11)
[2024-12-15] MEDS: ASPIRIN 81 MG ENTERIC TABLET PO (09:18)
[2024-12-15 10:15] LABS: Cholesterol 187 mg/dL (0-200); HDL Direct 64 mg/dL; Triglycerides 47 mg/dL (<150)
--- NOTE | 2024-12-15 10:17 | PM.CNCAR ---
Assessment and Plan Assessment and plan (1) Hypertension: Code(s): I10 - Essential (primary) hypertension Status: Acute (2) NSTEMI (non-ST elevated myocardial infarction): Code(s): I21.4 - Non-ST elevation (NSTEMI) myocardial infarction Status: Acute (3) Dyslipidemia: Code(s): E78.5 - Hyperlipidemia, unspecified Status: Acute Plan 64-year-old woman with hypertension, hyperlipidemia, and hypothyroidism presented with chest discomfort whose clinical presentation is consistent with NSTEMI NSTEMI -on heparin drip and aspirin 81 mg p.o. daily -we discussed the clinical presentation along with the medical or recommendations for cardiac catheterization -we discussed the risks, benefits, alternatives of cardiac catheterization and she agreed to proceed forward with the procedure with possible PCI Hypertension -can resume her home antihypertensive medications Hyperlipidemia -on simvastatin History of Present Illness History of Present Illness Consult date/time: 12/15/24 10:17 Requesting physician: Pedro Yuen DO Consult reason: chest pain Reason For Visit: Elevated trop Narrative: 64-year-old woman with hypertension, hyperlipidemia, and hypothyroidism presented with chest discomfort. Substernal chest pressure started last night around 10:00 p.m. when she was about to go to sleep. It felt like her heart was flip-flopping along with radiation of pain down both arms followed by diaphoresis. This lasted for about 10-15 minutes prompting emergency room visit. By the time she arrived in emergency room, she had resolution of her symptoms. Previously she was able to ambulate and perform activities of daily living such as grocery shopping without any cardiopulmonary limitations. No orthopnea or lower extremity swelling. Denies any shortness of breath. Review of Systems Cardiovascular: Cardiovascular: Reports as per HPI Respiratory: Respiratory: Reports as per HPI [facility] Past Medical History Medical History Arthritis Claustrophobia Degenerative joint disease of knee Effusion, right knee High cholesterol Left knee DJD Left knee pain Obesity Right knee DJD Right knee pain Surgical History Surgical History S/P total knee arthroplasty Family History Family History Other Arthritis Cancer Diabetes mellitus Heart disease High cholesterol Hypertension Lung disease Social History Social History (Updated 04/16/22 @ 10:08 by Olive Lee MA) Smoking status: Former smoker Tobacco type: cigarettes Second hand tobacco smoke exposure: No Additional smoking assessment comments: STATES SMOKED 1PK/2DAYS/7YRS/QUIT 1984, DENIES ALL FORMS OF TOBACCO USE Alcohol intake: never Substance use: never Substance use type: does not use Lack of Transportation: No Lack of Food: Never True Current Housing: I Have Housing Concerned About Future Housing: No Difficulty Paying Gas/Electric Bills: No Difficulty Paying for Meds: No Currently Unemployed: No Education: High School Diploma/GED Difficulty w/ Childcare or Family Care: No Living arrangements: with family Additional living arrangements comments: LIVES WITH SPOUSE - [place] Gender identity (if verbalized by the patient): Female Spiritual care concerns: No Meds Home Medications and Allergies Home Medications ?Medication ?Instructions ?Recorded ?Confirmed ?Type simvastatin 40 mg tablet 40 mg PO HS 10/21/20 12/15/24 History acetaminophen 500 mg tablet 500 mg PO Q6H PRN Pain 04/20/21 12/15/24 History ibuprofen 200 mg tablet 400 mg PO Q6H PRN Pain 04/20/21 12/15/24 History multivitamin 1 tablet PO QAM 04/20/21 12/15/24 History carvedilol 12.5 mg tablet 12.5 mg PO Q12H 12/15/24 12/15/24 History levothyroxine 137 mcg tablet 137 mcg PO DAILY 12/15/24 12/15/24 History spironolactone 25 1 tablet PO DAILY 12/15/24 12/15/24 History mg-hydrochlorothiazide 25 mg tablet Allergies Allergy/AdvReac Type Severity Reaction Status Date / Time No Known Allergies Allergy Mild Verified 04/16/22 10:07 Vital Signs Vital Signs - 24 hr 12/15/24 00:17 12/15/24 00:22 12/15/24 00:23 Temperature 36.4 C Pulse Rate 83 82 Respiratory Rate 17 Blood Pressure Pulse Oximetry 98 98 Oxygen Delivery Room Air Room Air 12/15/24 00:27 12/15/24 00:28 12/15/24 03:30 Temperature Pulse Rate 82 52 L Respiratory Rate 17 Blood Pressure 126/73 Pulse Oximetry 98 97 Oxygen Delivery Room Air 12/15/24 06:08 12/15/24 06:26 12/15/24 07:41 Temperature 36.7 C Pulse Rate 58 L 59 L 58 L Respiratory Rate 16 16 16 Blood Pressure 159/94 H 153/65 H 152/72 H Pulse Oximetry 97 99 99 Oxygen Delivery Exam Const: General: comfortable HENMT: Mouth: Yes moist mucous membranes Eyes: EOM: EOMs intact bilaterally Neck: Neck: no JVD Resp: Effort & Inspection: normal respiratory effort Auscultation: clear to auscultation bilaterally Cardio: Rate: bradycardic Rhythm: regular rhythm Heart sounds: no murmurs Extrem: General: no pedal edema Psych: Affect: normal affect Results Labs and Meds 12/15/24 07:27 12/15/24 00:27 Lab results: Cardiac Enzymes 12/15/24 12/15/24 12/15/24 Range/Units 00:27 03:59 07:27 AST 29 (14-36) U/L Troponin I 0.014 0.109 H* D 0.141 H* D (0.000-0.034) ng/mL Coagulation 12/15/24 Range/Units 00:27 PT 12.9 (11.1-14.7) Seconds APTT 22.3 (22.3-36.8) Seconds Lipids 12/15/24 Range/Units 07:27 Triglycerides 47 (<150) mg/dL Cholesterol 187 (0-200) mg/dL CBC 12/15/24 12/15/24 Range/Units 00:27 07:27 WBC 10.2 H 12.5 H (4.5-10.0) K/mm3 RBC 4.14 L 3.98 L (4.2-5.4) M/mm3 Hgb 12.7 12.3 (12.0-15.0) g/dL Hct 38.6 38.1 (37.0-47.0) % Plt Count 241 220 (150-375) k/mm3 Lymph # (Auto) 1.55 4.44 H (0.9-3.2) K/mm3 [place] # (Auto) 0.5 0.9 H (0.1-0.6) K/mm3 Eos # (Auto) 0.0 0.1 (0-0.3) K/mm3 Baso # (Auto) 0.0 0.0 (0.0-0.1) K/mm3 Comprehensive Metabolic Panel 12/15/24 Range/Units 00:27 Sodium 139 (137-145) mmol/L Potassium 4.5 (3.4-5.0) mmol/L Chloride 107 (98-107) mmol/L Carbon Dioxide 22 (22-30) mmol/L BUN 18 H (7-17) mg/dL Creatinine 0.94 (0.7-1.0) mg/dL Glucose 127 H (65-110) mg/dL Calcium 9.5 (8.4-10.2) mg/dL AST 29 (14-36) U/L ALT 23 (6-35) U/L Alkaline Phosphatase 67 (38-126) U/L Total Protein 7.8 (6.3-8.2) g/dL Albumin 4.4 (3.5-5.1) g/dL Intake and Output 12/14/24 12/15/24 12/15/24 23:59 07:59 15:59 Intake Total 11.3 Balance 11.3 Intake: IV 11.3 Heparin Sod/D5w 100 Units/ml 25 11.3 ,000 units In 250 ml @ 800 UNITS/HR 8 mls/hr IV CONT .Q24H [facility] Rx#:[id number] Patient Weight 12/15/24 23:59 Weight 98.1 kg
--- NOTE | 2024-12-15 10:21 | WPDHPUPDATE1 ---
History and Physical Update Update Date/Time: 12/15/24 10:21 History and Physical has been reviewed, including an updated exam of the patient. There are NO changes in the patient's condition. Risks, benefits, and alternatives have been discussed and questions answered. Patient agrees to proceed with procedure.
--- NOTE | 2024-12-15 10:22 | P.SEDATION_ITS ---
Moderate Sedation Note-Pt Data Patient Data Allergies Allergy/AdvReac Type Severity Reaction Status Date / Time No Known Allergies Allergy Mild Verified 04/16/22 10:07 Home Medications ?Medication ?Instructions ?Recorded ?Confirmed ?Type simvastatin 40 mg tablet 40 mg PO HS 10/21/20 5 History acetaminophen 500 mg tablet 500 mg PO Q6H PRN Pain 12/15/24 History ibuprofen 200 mg tablet 400 mg PO Q6H PRN Pain 04/2012/15/24 History multivitamin 1 tablet PO QAM 04/20/2112/31 History carvedilol 12.5 mg tablet 12.5 mg PO Q12H 12/15/2412/31 History levothyroxine 137 mcg tablet 137 mcg PO DAILY 12/15/24 12/15/24 History spironolactone 25 1 tablet PO DAILY 12/15/24 0 12/15/24 History mg-hydrochlorothiazide 25 mg tablet Current Medications: Active Medications Acetaminophen (Acetaminophen 500 Mg Tablet) 500 mg PO Q6H PRN PRN Reason: Pain Aspirin (Aspirin 81 Mg Enteric Tablet) 81 mg PO [facility] Last Admin: 12/15/24 09:18 Dose: 81 mg Heparin Sodium (Porcine) (Heparin Sodium 5,000 Units/Ml Vial) 4,000 units IV PUSH PRN PRN PRN Reason: aPTT less than 55 seconds Heparin Sodium (Porcine) (Heparin Sodium 5,000 Units/Ml Vial) 2,500 units IV PUSH PRN PRN PRN Reason: aPTT 55 - 70 seconds Heparin Sodium/Dextrose (Heparin Sodium/D5w 100 Units/Ml) 25,000 units in 250 mls @ 8 mls/hr IV CONT .Q24H [facility]; Protocol Last Titration: 12/15/24 06:56 Dose: 800 units/hr, 8 mls/hr Levothyroxine Sodium 112 mcg/ (Levothyroxine Sodium 25 mcg) 137 mcg PO DAILY@0630 [facility] Last Admin: 12/15/24 09:12 Dose: 137 mcg Multivitamins Therapeutic (Multivitamins Therapeutic Tab (*Bkc)) 1 tablet PO [facility] Last Admin: 12/15/24 09:11 Dose: 1 tablet Perflutren Lipid Microsphere (Perflutren Lipid Microspheres 1.5 Ml Vial Diluted To 10 Ml Total Volume) 0 ml IV PUSH ONCE PRN; Protocol PRN Reason: adequate visualization Stop: 12/18/24 08:59 Simvastatin (Simvastatin 20 Mg Tablet) 40 mg PO HS [facility] Sedation/Anesthesia: No previous sedation/anesthesia problems (including family history). [facility] Past Medical History Medical History Arthritis Claustrophobia Degenerative joint disease of knee Effusion, right knee High cholesterol Left knee DJD Left knee pain Obesity Right knee DJD Right knee pain Surgical History Surgical History S/P total knee arthroplasty Family History Family History Other Arthritis Cancer Diabetes mellitus Heart disease High cholesterol Hypertension Lung disease Social History Social History (Updated 04/16/22 @ 10:08 by Olive Lee MA) Smoking status: Former smoker Tobacco type: cigarettes Second hand tobacco smoke exposure: No Additional smoking assessment comments: STATES SMOKED 1PK/2DAYS/7YRS/QUIT 1984, DENIES ALL FORMS OF TOBACCO USE Alcohol intake: never Substance use: never Substance use type: does not use Lack of Transportation: No Lack of Food: Never True Current Housing: I Have Housing Concerned About Future Housing: No Difficulty Paying Gas/Electric Bills: No Difficulty Paying for Meds: No Currently Unemployed: No Education: High School Diploma/GED Difficulty w/ Childcare or Family Care: No Living arrangements: with family Additional living arrangements comments: LIVES WITH SPOUSE - [place] Gender identity (if verbalized by the patient): Female Spiritual care concerns: No Mod Sed Physical Exam Physical Exam Pre Procedural Exam: Normal: Lungs, Heart Size and Heart Rhythm and Variation: Heart Rate (bradycardic) Hours since solid foods: 12 Hours since liquid intake: 12 Mallampati Classification: class II Internal Medicine - PN: Obj Da Vital Signs Vital Signs: Vital Signs - 24 hr 12/15/24 00:17 12/15/24 00:22 12/15/24 00:23 Temperature 36.4 C Pulse Rate 83 82 Respiratory Rate 17 Blood Pressure Pulse Oximetry 98 98 Oxygen Delivery Room Air Room Air 12/15/24 00:27 12/15/24 00:28 12/15/24 03:30 Temperature Pulse Rate 82 52 L Respiratory Rate 17 Blood Pressure 126/73 Pulse Oximetry 98 97 Oxygen Delivery Room Air 12/15/24 06:08 12/15/24 06:26 12/15/24 07:41 Temperature 36.7 C Pulse Rate 58 L 59 L 58 L Respiratory Rate 16 16 16 Blood Pressure 159/94 H 153/65 H 152/72 H Pulse Oximetry 97 99 99 Oxygen Delivery Intake/Output Intake/Output: Intake & Output 12/12/24 12/13/24 12/14/24 12/15/24 23:59 23:59 23:59 23:59 Intake Total 11.3 Balance 11.3 Meds/Results Medications: Active Medications Generic Name Dose Route Start Last Admin Trade Name Freq PRN Reason Stop Dose Admin Acetaminophen 500 mg 12/15/24 06:59 Acetaminophen 500 Mg Tablet PO Q6H PRN Pain Aspirin 81 mg 12/15/24 09:00 12/15/24 09:18 Aspirin 81 Mg Enteric Tablet PO 81 mg QAM [facility] Administration Heparin Sodium (Porcine) 4,000 units 12/15/24 05:20 Heparin Sodium 5,000 Units/Ml Vial IV PUSH PRN PRN aPTT less than 55 seconds Heparin Sodium (Porcine) 2,500 units 12/15/24 05:20 Heparin Sodium 5,000 Units/Ml Vial IV PUSH PRN PRN aPTT 55 - 70 seconds Heparin Sodium/Dextrose 25,000 units in 250 mls @ 8 mls/hr 12/15/24 05:20 12/15/24 06:56 Heparin Sodium/D5w 100 Units/Ml IV CONT 800 units/hr .Q24H TINO 8 mls/hr Protocol Titration 800 UNITS/HR Levothyroxine Sodium 112 mcg/ 137 mcg 12/15/24 07:15 12/15/24 09:12 Levothyroxine Sodium 25 mcg PO 137 mcg DAILY@0630 [facility] Administration Multivitamins Therapeutic 1 tablet 12/15/24 09:00 12/15/24 09:11 Multivitamins Therapeutic Tab (*Bkc) PO 1 tablet QAM [facility] Administration Perflutren Lipid Microsphere 0 ml 12/15/24 08:58 Perflutren Lipid Microspheres 1.5 Ml Vial Diluted To 10 Ml Total Volume IV PUSH 12/18/24 08:59 ONCE PRN adequate visualization Protocol Simvastatin 40 mg 12/15/24 21:00 Simvastatin 20 Mg Tablet PO HS [facility] Radiology Results: ITS Impressions Chest X-Ray 12/15/24 08:41 IMPRESSION: 1. No acute cardiopulmonary findings given portable technique. Labs 12/15/24 07:27 12/15/24 00:27 Labs: Laboratory Results - last 24 hr 12/15/24 12/15/24 12/15/24 00:27 03:59 07:27 WBC 10.2 H 12.5 H RBC 4.14 L 3.98 L Hgb 12.7 12.3 Hct 38.6 38.1 MCV 93.2 95.7 MCH 30.7 30.9 MCHC 32.9 32.3 RDW 12.5 12.5 Plt Count 241 220 MPV 12.6 H 13.5 H Immature Gran % (Auto) 1.3 H 0.5 Neut % (Auto) 78.3 H 55.7 Lymph % (Auto) 15.2 L 35.5 [place] % (Auto) 4.8 7.4 Eos % (Auto) 0.1 0.7 Baso % (Auto) 0.3 0.2 Lymph # (Auto) 1.55 4.44 H [place] # (Auto) 0.5 0.9 H Eos # (Auto) 0.0 0.1 Baso # (Auto) 0.0 0.0 Abs Immat Gran (auto) 0.13 H 0.06 H Absolute Neuts (auto) 8.0 H 7.0 H Absolute Nucleated RBC 0.000 0.000 Nucleated RBC % 0.0 0.0 % Immature Plt Fraction 13.0 H PT 12.9 INR 1.0 APTT 22.3 Sodium 139 Potassium 4.5 Chloride 107 Carbon Dioxide 22 Anion Gap 10 BUN 18 H Creatinine 0.94 Estim Creat Clear Calc 55 Estimated GFR 60 Glucose 127 H Calcium 9.5 Total Bilirubin 0.4 AST 29 ALT 23 Alkaline Phosphatase 67 Troponin I 0.014 0.109 H* D 0.141 H* D Total Protein 7.8 Albumin 4.4 Triglycerides 47 Cholesterol 187 HDL Direct 64 Lipase 159 ASA Classification/Sedation ASA Classification/Sedation ASA Class: III Emergent: No Risks: Risks, benefits and alternatives explained and patient/family accepted plan for sedation. Patient re-evaluated immediately prior to sedation.
[2024-12-15 12:15] LABS: Troponin I 0.133 ng/mL (0.000-0.034)
[2024-12-15 12:18] LABS: INR 1.1; Prothrombin Time 14.1 Seconds (11.1-14.7)
[2024-12-15 12:19] LABS: Partial Thromboplastin Time 39.9 Seconds (22.3-36.8)
--- NOTE | 2024-12-15 12:47 | P.PCNCC_ITS ---
Cardiac Cath Procedure Note Date of procedure:: 12/15/24 Performing physician:: CATHETERIZATION LABORATORY REPORT Procedure Date: 12/15/2024 Referring Physician: Dr. Aldridge Anesthesia: Versed and Fentanyl were ordered and given in my presence at 1220, procedure ended at 1243. Supervision of nurse, Aparna Cabrera monitored moderate sedation with 2mg Versed and 100mcg Fentanyl was provided for 23 minutes. Pre-op Diagnosis: NSTEMI Post-op Diagnosis: NSTEMI Procedure(s): Left heart catheterization with coronary angiography Access Site: Right radial artery Brief History and Clinical Indications: All risks, benefits and alternatives to left heart catheterization with or without percutaneous coronary intervention was discussed at length with the patient. Risk of complications including but not limited to bleeding, infection, arrhythmia, stroke, worsening kidney function, blood loss, groin hematoma, limb loss, emergency coronary artery bypass grafting, and even were discussed with the patient and all questions were answered. The patient understood and wished to proceed. Time out called, patient name, date of , medical record number, allergies, procedure performed, identify Stationary Steam Engineer, patient and staff member concurred with accurate data, procedure carried on. Findings: LEFT HEART CATHETERIZATION FINDINGS: 1. Left main: The left main coronary artery has 60-70% distal stenosis. 2. Left anterior descending: The LAD at its ostium has 70% stenosis. In the mid LAD there is a heavily calcified 80% stenosis (likely culprit). The remainder of the LAD and its branches are free of angiographic high-grade stenosis. 3. Left circumflex: The left circumflex artery and the main marginal branches have diffuse areas of 10-20% stenosis. 4. Right coronary artery: The RCA is a moderate caliber dominant vessel. The mid body right after takeoff of the marginal branch has a 60% stenosis. The distal RCA has a 50-60% stenosis. The remainder of the vessel and its branches have luminal irregularities. 5. Left ventricle: A. End-diastolic pressure 24 mmHg. B. LV gram deferred. C. No significant gradient across aortic valve on catheter pullback. 6. Opening AO pressure 135/75 and closing AO pressure 127/76 Description of Procedure: Informed consent signed and placed in the chart. Patient transferred to cleaner laboratory equipment room. Prepped and draped in usual sterile fashion. 2% lidocaine injected subcutaneously in right wrist area. 22-gauge venipuncture catheter used to access the right radial artery with the Seldinger technique. 6-FR slender sheath placed in right radial artery. Nitroglycerin 200mcg, Verapamil 2.5mg, and Heparin 5000U was given intraarterial through the sheath. J wire advanced under fluoroscopy and given severe tortuosity in the subclavian, was exchanged out for a Wholey wire which was able to access the ascending aorta. 5F JL3.5 diagnostic catheter engaged Left Main Coronary Artery. 5F JR4 diagnostic catheter engaged Right Coronary Artery Multiple orthogonal angiogram obtained and reviewed 5F JR4 diagnostic catheter crossed aortic valve to obtain LVEDP, LV angiogram deferred. Hemostasis was achieved by application of TR band. Assessment: Severe coronary artery disease Post Operative Condition: Stable No significant blood loss Disposition: Floor Plan: Transfer for CABG Can resume heparin drip at 6pm without bolus. Tam Maldonado Interventional Cardiology
[2024-12-15] MEDS: SODIUM CHLORIDE 0.9% IV 1,000 ML 125 ML IV CONT (13:20)
[2024-12-15] MEDS: ACETAMINOPHEN 500 MG TABLET PO (14:05)
[2024-12-15] MEDS: SIMVASTATIN 20 MG TABLET 40 MG PO (20:26)
--- NOTE | 2024-12-15 23:13 | PC.NURSE ---
This RN spoke with [facility] transfer center at 2300 for update. No bed at this time.
[2024-12-16] VITALS: BP 130/64; PULSE 48; PULSE 63; RESP 16; TEMP 36.6; O2SAT 98
[2024-12-16 01:18] LABS: Partial Thromboplastin Time 40.2 Seconds (22.3-36.8)
[2024-12-16 02:00] VITALS: PULSE 48
--- NOTE | 2024-12-16 02:46 | PM.TDS ---
Transfer Discharge Sum: Prov Provider Date of admission: 12/15/24 05:31 Primary care physician: Rocky Bravo MD Admitting clinician: Bambi Aldridge MD Consults: 12/15/24 Consult to Physician Routine Comment: Notified Yue Lu of consult Consulting Provider: Tam Maldonado bingo caller/MD group to consult: HCG for [facility] Reason for consultation: NSTEMI Has provider been notified: Yes 12/15/24 05:32 Consult to Physician Routine Comment: Dr was notified by nurse Consulting Provider: Pedro Yuen Reason for consultation: Elevated trop Has provider been notified: Yes Discharging clinician: Jt Brizuela Anticipated date of transfer: 12/16/24 Receiving physician/facility: [facility] Dr. Silva DS: Admitting Diagnosis Discharge Date 12/16/2024 Admitting Diagnosis Hypertension, Dyslipidemia, NSTEMI DS: Discharge Diagnosis Discharge Diagnosis (1) NSTEMI (non-ST elevated myocardial infarction): Code(s): I21.4 - Non-ST elevation (NSTEMI) myocardial infarction Status: Acute (2) Hypertension: Code(s): I10 - Essential (primary) hypertension Status: Acute (3) Dyslipidemia: Code(s): E78.5 - Hyperlipidemia, unspecified Status: Acute (4) Obesity: Code(s): E66.9 - Obesity, unspecified Status: Acute (5) Coronary artery disease: Code(s): I25.10 - Atherosclerotic heart disease of [place] coronary artery without angina pectoris Status: Acute Plan Transfer to [facility] for [facility]G Transfer Discharge Sum: Med Medications Active and Home Medications: Home Medications simvastatin 40 mg tablet 40 mg PO HS 10/21/20 [History Confirmed 12/15/24] acetaminophen 500 mg tablet 500 mg PO Q6H PRN Pain 04/20/21 [History Confirmed 12/15/24] ibuprofen 200 mg tablet 400 mg PO Q6H PRN Pain 04/20/21 [History Confirmed 12/15/24] multivitamin 1 tablet PO QAM 04/20/21 [History Confirmed 12/15/24] carvedilol 12.5 mg tablet 12.5 mg PO Q12H 12/15/24 [History Confirmed 12/15/24] levothyroxine 137 mcg tablet 137 mcg PO DAILY 12/15/24 [History Confirmed 12/15/24] spironolactone 25 mg-hydrochlorothiazide 25 mg tablet 1 tablet PO DAILY 12/15/24 [History Confirmed 12/15/24] Active Medications Acetaminophen (Acetaminophen 500 Mg Tablet) 500 mg PO Q6H PRN PRN Reason: Pain Last Admin: 12/15/24 14:05 Dose: 500 mg Aspirin (Aspirin 81 Mg Enteric Tablet) 81 mg PO QAM [facility] Last Admin: 12/15/24 09:18 Dose: 81 mg Heparin Sodium (Porcine) (Heparin Sodium 5,000 Units/Ml Vial) 4,000 units IV PUSH PRN PRN PRN Reason: aPTT less than 55 seconds Last Admin: 12/16/24 01:39 Dose: 4,000 units Heparin Sodium (Porcine) (Heparin Sodium 5,000 Units/Ml Vial) 2,500 units IV PUSH PRN PRN PRN Reason: aPTT 55 - 70 seconds Heparin Sodium/Dextrose (Heparin Sodium/D5w 100 Units/Ml) 25,000 units in 250 mls @ 11 mls/hr IV CONT .[id number] [facility]; Protocol Last Titration: 12/16/24 01:39 Dose: 1,100 units/hr, 11 mls/hr Levothyroxine Sodium 112 mcg/ (Levothyroxine Sodium 25 mcg) 137 mcg PO DAILY@0630 [facility] Last Admin: 12/15/24 09:12 Dose: 137 mcg Multivitamins Therapeutic (Multivitamins Therapeutic Tab (*Bkc)) 1 tablet PO [facility] Last Admin: 12/15/24 09:11 Dose: 1 tablet Perflutren Lipid Microsphere (Perflutren Lipid Microspheres 1.5 Ml Vial Diluted To 10 Ml Total Volume) 0 ml IV PUSH ONCE PRN; Protocol PRN Reason: adequate visualization Stop: 12/18/24 08:59 Simvastatin (Simvastatin 20 Mg Tablet) 40 mg PO [facility] Last Admin: 12/15/24 20:26 Dose: 40 mg Transfer Discharge Sum: Hosp Hospital Course Hospital course: Marci Brizuela is a 64 year old female admitted after having chest pain for a few hours with subsequent mild troponin elevation. Patient underwent LHC on 12/15/24 at [facility] with findings: Findings: LEFT HEART CATHETERIZATION FINDINGS: 1. Left main: The left main coronary artery has 60-70% distal stenosis. 2. Left anterior descending: The LAD at its ostium has 70% stenosis. In the mid LAD there is a heavily calcified 80% stenosis (likely culprit). The remainder of the LAD and its branches are free of angiographic high-grade stenosis. 3. Left circumflex: The left circumflex artery and the main marginal branches have diffuse areas of 10-20% stenosis. 4. Right coronary artery: The RCA is a moderate caliber dominant vessel. The mid body right after takeoff of the marginal branch has a 60% stenosis. The distal RCA has a 50-60% stenosis. The remainder of the vessel and its branches have luminal irregularities. 5. Left ventricle: A. End-diastolic pressure 24 mmHg. B. LV gram deferred. C. No significant gradient across aortic valve on catheter pullback. 6. Opening AO pressure 135/75 and closing AO pressure 127/76 Plan is to send to [facility] for [facility]G. Patient Condition: Stable Time Spent with Patient Time attestation: Total time spent providing and/or coordinating transfer services: 40 minutes Exam Const: General: comfortable HENMT: Mouth: Yes moist mucous membranes Eyes: EOM: EOMs intact bilaterally Neck: Neck: no JVD Resp: Effort & Inspection: normal respiratory effort Auscultation: clear to auscultation bilaterally Cardio: Rate: bradycardic Rhythm: regular rhythm Extrem: General: no pedal edema Psych: Affect: normal affect DS: Data Data Completed and Pending Completed studies during hospitalization: Left Heart Cath as above Labs on day of discharge: Labs from last 24 hours 12/16/24 12/15/24 12/15/24 00:38 11:32 07:27 WBC 12.5 H RBC 3.98 L Hgb 12.3 Hct 38.1 MCV 95.7 MCH 30.9 MCHC 32.3 RDW 12.5 Plt Count 220 MPV 13.5 H Immature Gran % (Auto) 0.5 Neut % (Auto) 55.7 Lymph % (Auto) 35.5 Ward % (Auto) 7.4 Eos % (Auto) 0.7 Baso % (Auto) 0.2 Lymph # (Auto) 4.44 H Ward # (Auto) 0.9 H Eos # (Auto) 0.1 Baso # (Auto) 0.0 Abs Immat Gran (auto) 0.06 H Absolute Neuts (auto) 7.0 H Absolute Nucleated RBC 0.000 Nucleated RBC % 0.0 % Immature Plt Fraction 13.0 H PT 14.1 INR 1.1 APTT 40.2 H 39.9 H Troponin I 0.133 H* 0.141 H* D Triglycerides 47 Cholesterol 187 LDL Cholesterol Direct 89 HDL Direct 64 12/15/24 03:59 WBC RBC Hgb Hct MCV MCH MCHC RDW Plt Count MPV Immature Gran % (Auto) Neut % (Auto) Lymph % (Auto) Ward % (Auto) Eos % (Auto) Baso % (Auto) Lymph # (Auto) Ward # (Auto) Eos # (Auto) Baso # (Auto) Abs Immat Gran (auto) Absolute Neuts (auto) Absolute Nucleated RBC Nucleated RBC % % Immature Plt Fraction PT INR APTT Troponin I 0.109 H* D Triglycerides Cholesterol LDL Cholesterol Direct HDL Direct Imaging Radiologist's impression: Examination: XR chest 1V portable Clinical History: Chest pain Comparison: None Technique: Portable AP Findings: Heart size upper limit of normal. Lungs clear. No acute bony abnormality. IMPRESSION: 1. No acute cardiopulmonary findings given portable technique. Reviewed, dictated and finalized at location R.
--- NOTE | 2024-12-16 03:25 | PC.NURSE ---
Patient transfered to [facility] via [facility]. Patient refused notification of family on transfer, and stated she would contact them herself. Patient left via stretcher at [id number].
== END 2024-12-16 03:21 | disposition short-term general hospital (02) | DRG 282 ==
LOC: ANHED 05:22 → ANHIMU 06:11
PROVIDERS: General Practice; Internal Medicine; Admitting Provider Internal Medicine; Emergency Provider Emergency Medicine; PCP Internal Medicine; Visit Provider Nurse Practitioner
PROC: 4A023N7 Measurement of Cardiac Sampling and Pressure, Left Heart, Percutaneous Approach (ICD-10-PCS; CPT 93452; principal; 2024-12-15 12:30)
DX: I21.4 Non-ST elevation (NSTEMI) myocardial infarction (principal); I25.10 Atherosclerotic heart disease of native coronary artery without angina pectoris; I10 Essential (primary) hypertension; E78.00 Pure hypercholesterolemia, unspecified; E03.9 Hypothyroidism, unspecified; E66.9 Obesity, unspecified; M17.9 Osteoarthritis of knee, unspecified; F40.240 Claustrophobia; Z96.659 Presence of unspecified artificial knee joint; Z87.891 Personal history of nicotine dependence
CPT/HCPCS: 36415; 71045; 80053; 80061; 83690; 84484; 85025; 85055; 85610; 85730; 93005; 93458; 96374; 99285; A9270; C1769; C1887; C1894; J1644; J2003; J2250; J2305; J3010; J7030; J7040